=== PATIENT | female | born 1955 | race Caucasian/White ===

== ENCOUNTER 2023-12-29 13:17 | Inpatient (IN) | payer OTHER, MEDICAID ==
[~2023-12-29] VITALS: Ht 165.1 cm; Wt 89.3 kg
[~2023-12-29 13:17] MED LIST: ASPI-325 PO; CALC667C PO; ESTR0.5T6 PO; FURO40TA4 PO; INSU100I54 SC; INSUINJ37 SC; LEV150T PO; OMEP1CAP70 PO; ROSU1TAB14 PO; SEMA4INJ SC; TICA90TA PO
[2023-12-29 15:18] LABS: Lactic Acid w/Reflex 2.1 mmol/L (0.4-2.0)
[2023-12-29] MEDS: levoFLOXacin 500MG 100 ML IV ONE (17:50)
[2023-12-29] MEDS: SODIUM CHLORIDE 0.9% 1,000 ML IV ONE (17:50)
[2023-12-29 18:14] LABS: Basophils # (auto) 0 10 ^3/uL (0-0.2); Basophils % (auto) 0.1 % (0.0-2.0); Eosinophils # (auto) 0 10 ^3/uL (0-0.8); Monocytes # (auto) 0.5 10 ^3/uL (0-1.3); Red Cell Distribution Width 15.9 % (11.8-14.3)
[2023-12-29 18:15] LABS: Hematocrit 22.2 % (36.0-46.0); Lymphocytes # (auto) 0.8 10 ^3/uL (0.4-5.4); Lymphocytes % (auto) 6.1 % (10.0-50.0); Mean Corpuscular Hemoglobin 30.8 pg (28.0-32.0); Mean Corpuscular Hgb Conc. 31.1 g/dL (32.0-36.0); Mean Corpuscular Volume 98.9 fL (80.0-100.0); Monocytes % (auto) 4.1 % (0.0-12.0); Neutrophils # (auto) 11.1 10 ^3/uL (1.6-8.6); Neutrophils % (auto) 89.7 % (37.0-80.0); Red Blood Cells 2.24 10^6/uL (4.0-5.20); White Blood Cell 12.4 10^3/uL (4.4-10.8)
[2023-12-29 18:29] LABS: Hemoglobin 6.9 g/dL (12.2-16.2)
[2023-12-29 18:31] LABS: Alanine Aminotransferase 23 U/L (7-40); Albumin 3.7 g/dL (3.2-4.8); Alkaline Phosphatase 43 U/L (46-116); Anion Gap 16 (5-15); Aspartate Aminotransferase 56 U/L (13-40); BUN/Creatinine Ratio 17.3 (10.0-20.0); Blood Urea Nitrogen 53 mg/dL (9-23); Calcium 8.4 mg/dL (8.7-10.4); Carbon Dioxide 16 mmol/L (20-30); Chloride 99 mmol/L (98-107); Glucose 351 mg/dL (74-106); Potassium 4.4 mmol/L (3.5-5.1); Sodium 131 mmol/L (136-145)
[2023-12-29 18:32] LABS: Bilirubin, Total 0.4 mg/dL (0.2-1.0)
[2023-12-30] VITALS (8 sets, daily range): BP systolic 100–109; BP diastolic 48–68; PULSE 65–97; RESP 16–20; TEMP 97.6–98.5; O2SAT 95–100
[2023-12-30] MEDS: PIPERACILLIN-TAZO 4.5GM 100 ML IV ONE ×2 (00:03→13:42)
[2023-12-30 07:22] LABS: Urine Bacteria NONE SEEN /hpf (None Seen); Urine Blood 3+ /uL (Negative); Urine Clarity CLOUDY (Clear); Urine Color Brown (Yellow); Urine Protein, UAD 2+ (Negative); Urine Specific Gravity 1.015 (1.001-1.035); Urine Urobilinogen Normal (Negative); Urine WBC 413 /hpf (0 - 5); Urine WBC Clumps PRESENT /hpf (None Seen)
[2023-12-30 08:58] LABS: Basophils # (auto) 0 10 ^3/uL (0-0.2); Basophils % (auto) 0.5 % (0.0-2.0); Eosinophils # (auto) 0 10 ^3/uL (0-0.8); Hematocrit 23.3 % (36.0-46.0); Hemoglobin 7.6 g/dL (12.2-16.2); Lymphocytes # (auto) 1.1 10 ^3/uL (0.4-5.4); Lymphocytes % (auto) 13.5 % (10.0-50.0); Mean Corpuscular Hemoglobin 31.4 pg (28.0-32.0); Mean Corpuscular Hgb Conc. 32.5 g/dL (32.0-36.0); Mean Corpuscular Volume 96.8 fL (80.0-100.0); Monocytes # (auto) 0.5 10 ^3/uL (0-1.3); Monocytes % (auto) 5.8 % (0.0-12.0); Neutrophils # (auto) 6.4 10 ^3/uL (1.6-8.6); Neutrophils % (auto) 80.2 % (37.0-80.0); Red Blood Cells 2.41 10^6/uL (4.0-5.20); White Blood Cell 7.9 10^3/uL (4.4-10.8)
[2023-12-30 09:11] LABS: Chloride 101 mmol/L (98-107); Potassium 4.4 mmol/L (3.5-5.1); Sodium 132 mmol/L (136-145)
[2023-12-30 09:12] LABS: Anion Gap 14 (5-15); Calcium 8.6 mg/dL (8.5-10.1); Carbon Dioxide 17 mmol/L (20-30)
[2023-12-30 09:17] LABS: BUN/Creatinine Ratio 14.7 (10.0-20.0); Blood Urea Nitrogen 45 mg/dL (9-23); Glucose 389 mg/dL (74-106)
[2023-12-30] MEDS: cefTRIAXone 2GM/50ML D5W 50 ML IV ONE (11:45)
[2023-12-30] MEDS ORDERED: NITROGLYCERIN 0.4 MG SL TAB SL PRN (12:00)
[2023-12-30] MEDS ORDERED: MORPHINE SULFATE INJ 2 MG/ml SYRG IV PRN (12:00)
[2023-12-30] MEDS ORDERED: DOCUSATE SOD 100 MG CAP PO PRN (12:00)
[2023-12-30] MEDS ORDERED: PIPERACILLIN-TAZO 4.5GM 100 ML IV SCH (12:00)
[2023-12-30] MEDS ORDERED: ONDANSETRON HCL 4 MG/2 ML VIAL IV PRN (12:00)
[2023-12-30] MEDS ORDERED: ACETAMINOPHEN 325 MG TAB PO PRN (12:00)
[2023-12-30] MEDS: InsuLIN REG 1unit/0.01ml Soln (100units/ml) SC SCH (12:15)
[2023-12-30] MEDS ORDERED: DEXTROSE (50%) 50ML SYRG IV PRN (12:15)
[2023-12-30] MEDS: ACCU-CHEK COMFORT CURVE STRIP VI SCH (12:15)
[2023-12-30] MEDS: SODIUM CHLORIDE 0.9% 1,000 ML IV SCH (12:21)
[2023-12-30] MEDS ORDERED: FENO145T27 PO (12:28)
[2023-12-30] MEDS ORDERED: AMIT75TA62 PO (12:28)
[2023-12-30] MEDS ORDERED: HYDR-4227 PO (12:28)
[2023-12-30 14:05] LABS: INR 1.14 (0.9-1.15); Partial Thromboplastin Time 29.3 SEC (24.5-34.5); Prothrombin Time 11.9 sec (9.3-11.8)
[2023-12-30] MEDS ORDERED: fentaNYL CITRATE 100 MCG/2 ML VL ONE (17:26)
[2023-12-30] MEDS ORDERED: CALC0.25 PO (21:06)
[2023-12-30] MEDS ORDERED: TICA1TAB PO (21:06)
[2023-12-30] MEDS: PIPERACILLIN-TAZOB 3.375GM 100 ML IV SCH (22:10)
[2023-12-30] MEDS: AMITRIPTYLINE HCL 25 MG TAB PO SCH (22:11)
[2023-12-31] VITALS (10 sets, daily range): BP systolic 124–167; BP diastolic 59–96; PULSE 64–91; RESP 14–20; TEMP 97.6–98.5; O2SAT 93–100
[2023-12-31 06:08] LABS: Basophils # (auto) 0 10 ^3/uL (0-0.2); Basophils % (auto) 0.3 % (0.0-2.0); Eosinophils # (auto) 0.1 10 ^3/uL (0-0.8); Eosinophils % (auto) 0.8 % (0.0-7.0); Hematocrit 22.1 % (36.0-46.0); Hemoglobin 7.4 g/dL (12.2-16.2); Lymphocytes # (auto) 1.6 10 ^3/uL (0.4-5.4); Lymphocytes % (auto) 16.8 % (10.0-50.0); Mean Corpuscular Hemoglobin 32.1 pg (28.0-32.0); Mean Corpuscular Hgb Conc. 33.5 g/dL (32.0-36.0); Mean Corpuscular Volume 95.7 fL (80.0-100.0); Monocytes # (auto) 0.5 10 ^3/uL (0-1.3); Monocytes % (auto) 5.6 % (0.0-12.0); Neutrophils # (auto) 7.1 10 ^3/uL (1.6-8.6); Neutrophils % (auto) 76.5 % (37.0-80.0); Red Blood Cells 2.31 10^6/uL (4.0-5.20); Red Cell Distribution Width 16.2 % (11.8-14.3); White Blood Cell 9.3 10^3/uL (4.4-10.8)
[2023-12-31 06:28] LABS: Alanine Aminotransferase 22 U/L (7-40); Albumin 3.3 g/dL (3.2-4.8); Alkaline Phosphatase 43 U/L (46-116); Anion Gap 9 (5-15); Aspartate Aminotransferase 48 U/L (13-40); BUN/Creatinine Ratio 15.9 (10.0-20.0); Blood Urea Nitrogen 48 mg/dL (9-23); Calcium 8.7 mg/dL (8.5-10.1); Carbon Dioxide 24 mmol/L (20-30); Chloride 106 mmol/L (98-107); Glucose 135 mg/dL (74-106); Potassium 4.1 mmol/L (3.5-5.1); Sodium 139 mmol/L (136-145)
[2023-12-31 06:29] LABS: Bilirubin, Total 0.3 mg/dL (0.2-1.0); Total Protein 5.7 g/dL (5.7-8.2)
[2023-12-31] MEDS: PANTOPRAZOLE 40 MG TAB PO SCH (09:40)
[2023-12-31] MEDS: LEVOTHYROXINE SODIUM 50 MCG TAB PO SCH (09:40)
[2023-12-31] MEDS: FENOFIBRATE 145 MG PO SCH (10:00)
[2023-12-31] MEDS: ESTRADIOL 1 MG TAB PO SCH (10:00)
[2023-12-31] MEDS: FUROSEMIDE 40 MG TAB PO SCH (11:06)
[2023-12-31] MEDS: hydrALAZINE HCL 10 MG TAB PO SCH (11:06)
[2023-12-31] MEDS: HYDROcodone-ACET 5/325MG TAB PO PRN (11:46)
[2023-12-31] MEDS: cefTRIAXone 1GM/50ML D5W 50 ML IV ONE (15:01)
[2023-12-31] MEDS: BUMETANIDE 2.5mg/10ml (0.25 mg/ml) INJ IV ONE (15:01)
[2023-12-31] MEDS ORDERED: DEXTROSE (50%) 50ML SYRG IV PRN (15:15)
[2023-12-31] MEDS: InsuLIN REG 1unit/0.01ml Soln (100units/ml) SC ONE (15:22)
[2023-12-31] MEDS: ACCU-CHEK COMFORT CURVE STRIP VI SCH (16:34)
[2023-12-31] MEDS: InsuLIN REG 1unit/0.01ml Soln (100units/ml) SC SCH ×2 (16:38→22:36)
[2023-12-31] MEDS: INSULIN LANTUS (GLARGINE) 1 /0.01ml (100units/ml) SC SCH (22:00)
[2024-01-01] VITALS (9 sets, daily range): BP systolic 122–158; BP diastolic 52–76; PULSE 77–91; RESP 14–20; TEMP 97.6–98.9; O2SAT 93–100
[2024-01-01 06:22] LABS: Carbon Dioxide 25 mmol/L (20-30); Chloride 103 mmol/L (98-107); Potassium 3.5 mmol/L (3.5-5.1)
[2024-01-01 06:23] LABS: Anion Gap 9 (5-15); Sodium 137 mmol/L (136-145)
[2024-01-01 06:24] LABS: Calcium 8.7 mg/dL (8.5-10.1)
[2024-01-01 06:29] LABS: BUN/Creatinine Ratio 16.4 (10.0-20.0); Blood Urea Nitrogen 43 mg/dL (9-23); Glucose 70 mg/dL (74-106)
[2024-01-01] MEDS: CIPROFLOXACIN 400MG/200ML 200 ML IV ONE (08:28)
[2024-01-01] MEDS ORDERED: GLYCOPYRROLATE 0.2 MG/ML 1ML VIAL ONE (08:38)
[2024-01-01] MEDS ORDERED: DexAMETHasone SOD PHOS 10MG/1ML VIAL INJ ONE (08:38)
[2024-01-01] MEDS ORDERED: PROPOFOL 10 MG/ML 20 ML IV ONE (08:38)
[2024-01-01] MEDS ORDERED: ONDANSETRON HCL 4 MG/2 ML VIAL ONE (08:38)
[2024-01-01] MEDS ORDERED: LIDOCAINE 2% (LOCAL ANESTH.) PF 5ml SDV ONE (08:38)
[2024-01-01] MEDS ORDERED: KETAMINE 50mg/ML 10ml Vial 10 ML ONE (08:47)
[2024-01-01] MEDS ORDERED: KETAMINE 50mg/ML 1ml syringe ONE (08:48)
[2024-01-01] MEDS ORDERED: LIDOCAINE HCL 2% TOP JELLY 5ML TOP ONE (09:04)
[2024-01-01] MEDS ORDERED: SODIUM CHLORIDE LOCK 10 ML ONE (09:08)
[2024-01-01] MEDS ORDERED: PHENYLEPHRINE HCL 10 MG/ML VL ONE (09:08)
[2024-01-01] MEDS ORDERED: fentaNYL CITRATE 100 MCG/2 ML VL ONE (09:11)
[2024-01-01] MEDS ORDERED: LABETALOL HCL 5 MG/ML 4ML SYRINGE IV PRN (10:00)
[2024-01-01] MEDS ORDERED: ePHEDrine SULFATE 50 MG/ML AMP IV PRN (10:00)
[2024-01-01] MEDS ORDERED: fentaNYL CITRATE 100 MCG/2 ML VL IV PRN (10:00)
[2024-01-01] MEDS ORDERED: HYDROmorphone HCL 2 MG/ML VL/or syr IV PRN (10:00)
[2024-01-01] MEDS ORDERED: ONDANSETRON HCL 4 MG/2 ML VIAL IV PRN (10:00)
[2024-01-01] MEDS ORDERED: NALOXONE HCL 0.4 MG/ML VIAL IV PRN (10:00)
[2024-01-01] MEDS ORDERED: FLUMAZENIL 0.1 MG/ML INJ 10ML MDV IV PRN (10:00)
[2024-01-01 10:13] LABS: Basophils # (auto) 0 10 ^3/uL (0-0.2); Basophils % (auto) 0.3 % (0.0-2.0); Eosinophils # (auto) 0.4 10 ^3/uL (0-0.8); Eosinophils % (auto) 4.2 % (0.0-7.0); Hematocrit 28.6 % (36.0-46.0); Hemoglobin 9.4 g/dL (12.2-16.2); Lymphocytes # (auto) 1.7 10 ^3/uL (0.4-5.4); Mean Corpuscular Hemoglobin 31.4 pg (28.0-32.0); Mean Corpuscular Volume 95.1 fL (80.0-100.0); Monocytes # (auto) 0.5 10 ^3/uL (0-1.3); Monocytes % (auto) 6.1 % (0.0-12.0); Neutrophils # (auto) 6.2 10 ^3/uL (1.6-8.6); Neutrophils % (auto) 70.4 % (37.0-80.0); Red Blood Cells 3.01 10^6/uL (4.0-5.20); Red Cell Distribution Width 15.8 % (11.8-14.3); White Blood Cell 8.8 10^3/uL (4.4-10.8)
[2024-01-01] MEDS: hydrALAZINE HCL 20 MG/ML VL IV PRN (11:00)
[2024-01-01] MEDS: cefTRIAXone 1GM/50ML D5W 50 ML IV SCH (12:27)
[2024-01-02] VITALS (8 sets, daily range): BP systolic 113–158; BP diastolic 48–71; PULSE 67–84; RESP 15–21; TEMP 97.4–98.9; O2SAT 82–100
[2024-01-02] MEDS ORDERED: DEXTROSE (50%) 50ML SYRG IV PRN ×2 (06:15→17:30)
[2024-01-02] MEDS: ACCU-CHEK COMFORT CURVE STRIP VI SCH (06:23)
[2024-01-02] MEDS: InsuLIN REG 1unit/0.01ml Soln (100units/ml) SC SCH ×2 (06:25→17:41)
[2024-01-02] MEDS ORDERED: SODIUM CHLORIDE LOCK 10 ML ONE (09:18)
[2024-01-02] MEDS: LIDOCAINE VISCOUS 2% 15ML UD ONE (11:36)
[2024-01-02] MEDS: MIDAZOLAM HCL 5 MG/ML-1ML VIAL ONE (11:41)
[2024-01-02] MEDS: fentaNYL CITRATE 100 MCG/2 ML VL ONE (11:41)
[2024-01-02] MEDS: diphenhdrAMINE HCL 50 MG/1 ML VL ONE (11:41)
[2024-01-02] MEDS: FLUCONAZOLE 200MG/100ML 100 ML IV ONE (14:26)
[2024-01-02] MEDS: METOCLOPRAMIDE HCL 5MG/ml INJ 2ml VIAL IV SCH (14:26)
[2024-01-02] MEDS: FUROSEMIDE 100 MG/10ML VIAL IV SCH (14:34)
[2024-01-02] MEDS ORDERED: ACCU-CHEK COMFORT CURVE STRIP VI SCH (18:00)
[2024-01-03] VITALS (7 sets, daily range): BP systolic 109–164; BP diastolic 58–77; PULSE 64–86; RESP 16–21; TEMP 97.9–98.2; O2SAT 95–100
[2024-01-03 10:35] LABS: Basophils # (auto) 0.1 10 ^3/uL (0-0.2); Basophils % (auto) 0.7 % (0.0-2.0); Eosinophils # (auto) 0.3 10 ^3/uL (0-0.8); Eosinophils % (auto) 4.2 % (0.0-7.0); Hematocrit 32.6 % (36.0-46.0); Hemoglobin 10.6 g/dL (12.2-16.2); Lymphocytes # (auto) 1.6 10 ^3/uL (0.4-5.4); Mean Corpuscular Hemoglobin 31.2 pg (28.0-32.0); Mean Corpuscular Hgb Conc. 32.4 g/dL (32.0-36.0); Mean Corpuscular Volume 96.3 fL (80.0-100.0); Monocytes # (auto) 0.4 10 ^3/uL (0-1.3); Monocytes % (auto) 4.9 % (0.0-12.0); Neutrophils % (auto) 68.2 % (37.0-80.0); Nucleated Red Blood Cells % 0.1 %; Red Blood Cells 3.38 10^6/uL (4.0-5.20); Red Cell Distribution Width 16.3 % (11.8-14.3); White Blood Cell 7.4 10^3/uL (4.4-10.8)
[2024-01-03] MEDS: FLUCONAZOLE 200MG/100ML 100 ML IV SCH (10:48)
[2024-01-03 10:54] LABS: Alanine Aminotransferase 21 U/L (7-40); Alkaline Phosphatase 57 U/L (46-116); Anion Gap 5 (5-15); Aspartate Aminotransferase 27 U/L (13-40); BUN/Creatinine Ratio 15.7 (10.0-20.0); Blood Urea Nitrogen 42 mg/dL (9-23); Calcium 8.7 mg/dL (8.5-10.1); Carbon Dioxide 29 mmol/L (20-30); Chloride 99 mmol/L (98-107); Glucose 314 mg/dL (74-106); Potassium 4.8 mmol/L (3.5-5.1); Sodium 133 mmol/L (136-145)
[2024-01-03 10:55] LABS: Albumin 3.7 g/dL (3.2-4.8); Bilirubin, Total 0.4 mg/dL (0.2-1.0); Total Protein 6.6 g/dL (5.7-8.2)
[2024-01-04 05:00] VITALS: BP 123/57; PULSE 80; RESP 18; TEMP 97.9; O2SAT 98
[2024-01-04 06:12] LABS: Basophils # (auto) 0 10 ^3/uL (0-0.2); Basophils % (auto) 0.4 % (0.0-2.0); Eosinophils # (auto) 0.2 10 ^3/uL (0-0.8); Eosinophils % (auto) 3.1 % (0.0-7.0); Hematocrit 28.9 % (36.0-46.0); Hemoglobin 9.6 g/dL (12.2-16.2); Lymphocytes # (auto) 1.7 10 ^3/uL (0.4-5.4); Lymphocytes % (auto) 24.2 % (10.0-50.0); Mean Corpuscular Hemoglobin 31.4 pg (28.0-32.0); Mean Corpuscular Hgb Conc. 33.1 g/dL (32.0-36.0); Mean Corpuscular Volume 94.9 fL (80.0-100.0); Monocytes # (auto) 0.5 10 ^3/uL (0-1.3); Monocytes % (auto) 6.7 % (0.0-12.0); Neutrophils # (auto) 4.7 10 ^3/uL (1.6-8.6); Neutrophils % (auto) 65.6 % (37.0-80.0); Nucleated Red Blood Cells % 0.1 %; Red Blood Cells 3.04 10^6/uL (4.0-5.20); Red Cell Distribution Width 16.2 % (11.8-14.3); White Blood Cell 7.1 10^3/uL (4.4-10.8)
[2024-01-04 07:01] LABS: Alanine Aminotransferase 17 U/L (7-40); Albumin 3.1 g/dL (3.2-4.8); Alkaline Phosphatase 63 U/L (46-116); Anion Gap 5 (5-15); Blood Urea Nitrogen 39 mg/dL (9-23); Calcium 8.6 mg/dL (8.7-10.4); Carbon Dioxide 29 mmol/L (20-30); Chloride 102 mmol/L (98-107); Glucose 147 mg/dL (74-106); Potassium 4.3 mmol/L (3.5-5.1); Sodium 136 mmol/L (136-145)
[2024-01-04 07:02] LABS: Aspartate Aminotransferase 23 U/L (13-40); Bilirubin, Total 0.3 mg/dL (0.2-1.0); Total Protein 5.6 g/dL (5.7-8.2)
[2024-01-04 07:31] LABS: % Iron Saturation 16.5 % (15-50)
[2024-01-04 07:34] LABS: Ferritin 46.2 ng/mL (10-291)
[2024-01-04 07:35] LABS: Thyroid Stimulating Hormone 21.16 uIU/mL (0.55-4.78)
[2024-01-04 07:43] LABS: CRP High Sensitivity 0.89 mg/dL (<1.0)
[2024-01-04 07:47] VITALS: BP 131/58; PULSE 78; RESP 17; TEMP 98; O2SAT 93
[2024-01-04 08:00] VITALS: PULSE 73; PULSE 78; RESP 17; O2SAT 93
[2024-01-04 08:20] LABS: Erythrocyte Sedimentation Rate 56 mm/hr (0-20)
[2024-01-04] MEDS ORDERED: HYDR-4902 PO (10:47)
[2024-01-04] MEDS ORDERED: FLUC200T50 PO (10:47)
[2024-01-04 12:25] VITALS: BP 155/59; PULSE 81; RESP 16; TEMP 98.1; O2SAT 93
[2024-01-04 13:03] VITALS: BP 131/58; PULSE 63; RESP 17; TEMP 98; O2SAT 96
[2024-01-05 10:49] LABS: Free T4 (Free Thyroxine) 1.05 ng/dL (0.89-1.76)
[2024-01-05 11:01] LABS: Folate (Folic Acid) 6.88 ng/mL (>5.38)
[2024-01-14 05:07] LABS: Erythropoietin 20.9 mIU/mL (2.6-18.5)
== END 2024-01-04 14:30 | disposition home or self-care (01) | DRG 668 ==
LOC: ER 13:17 → EDBD 13:17 → TELE 12-30 11:59 → TELE-WESTW 12-30 19:55
PROVIDERS: ADMIT Nurse Practitioner Family; ATTEND Family Medicine
PROC: 30233N1 Transfusion of Nonautologous Red Blood Cells into Peripheral Vein, Percutaneous Approach (ICD-10-PCS; 2023-12-30)
PROC: 0TCB8ZZ Extirpation of Matter from Bladder, Via Natural or Artificial Opening Endoscopic (ICD-10-PCS; 2024-01-01)
PROC: 0TBB8ZZ Excision of Bladder, Via Natural or Artificial Opening Endoscopic (ICD-10-PCS; principal; 2024-01-01 08:44)
PROC: 0DB98ZX Excision of Duodenum, Via Natural or Artificial Opening Endoscopic, Diagnostic (ICD-10-PCS; 2024-01-02)
PROC: 0DB68ZX Excision of Stomach, Via Natural or Artificial Opening Endoscopic, Diagnostic (ICD-10-PCS; 2024-01-02)
DX: T83.518A Infection and inflammatory reaction due to other urinary catheter, initial encounter (principal); A41.9 Sepsis, unspecified organism; J18.9 Pneumonia, unspecified organism; N17.9 Acute kidney failure, unspecified; N18.4 Chronic kidney disease, stage 4 (severe); R33.9 Retention of urine, unspecified; D64.9 Anemia, unspecified; N30.91 Cystitis, unspecified with hematuria; E11.22 Type 2 diabetes mellitus with diabetic chronic kidney disease; E11.65 Type 2 diabetes mellitus with hyperglycemia; I12.9 Hypertensive chronic kidney disease with stage 1 through stage 4 chronic kidney disease, or unspecified chronic kidney disease; E03.9 Hypothyroidism, unspecified; R31.0 Gross hematuria; E78.00 Pure hypercholesterolemia, unspecified; K29.70 Gastritis, unspecified, without bleeding; E11.43 Type 2 diabetes mellitus with diabetic autonomic (poly)neuropathy; K31.84 Gastroparesis; D49.4 Neoplasm of unspecified behavior of bladder; Z88.3 Allergy status to other anti-infective agents; Z88.2 Allergy status to sulfonamides; Z79.02 Long term (current) use of antithrombotics/antiplatelets; Z79.4 Long term (current) use of insulin; Z79.82 Long term (current) use of aspirin; Z79.899 Other long term (current) drug therapy; Z90.710 Acquired absence of both cervix and uterus; Z90.49 Acquired absence of other specified parts of digestive tract; Z80.9 Family history of malignant neoplasm, unspecified
CPT/HCPCS: 36415; 43239; 71045; 74176; 80048; 80053; 81001; 82270; 82607; 82668; 82728; 82746; 82962; 83010; 83036; 83540; 83550; 83605; 83615; 84439; 84443; 85025; 85045; 85610; 85652; 85730; 86141; 86850; 86900; 86901; 86920; 87040; 87081; 87086; 87088; 87186; 87493; 96365; 96367; 96375; G0378; J1100; J1450; J1815; J1956; J2001; J2250; J2405; J2543; J2704